=== PATIENT | female | born 1930 | race Caucasian/White ===

== ENCOUNTER 2017-05-18 18:20 | Inpatient (IN) | payer MEDICARE, OTHER ==
[~2017-05-18] VITALS: Ht 165.1 cm; Wt 71.2 kg
--- NOTE | 2017-05-18 18:28 | NUR ---
Cat-scratch - right hand; happened last night - now, her right hand is swollen/red and painful; placed on PO Keflex by PMD
[2017-05-18] MEDS ORDERED: THYR60TA2 PO (18:34)
[2017-05-18] MEDS ORDERED: ESCI10TA PO (18:34)
--- NOTE | 2017-05-18 18:49 | NUR ---
RAC # 18 IV ACCESS. BLOOD SAMPLE COLLECTED SENT TO LAB
[2017-05-18] MEDS ORDERED: TDAP [DIPH/PERTUSSIS/TET] 0.5 ML VIAL IM ONE ×2 (18:52→19:00)
[2017-05-18] MEDS ORDERED: ACETAMINOPHEN 325 MG TABLET ONE (18:52)
[2017-05-18 18:56] LABS: BASOPHILS # (AUTO) 0.1 /CMM (0.0-0.2); BASOPHILS % (AUTO) 0.8 % (0.0-2.0); EOSINOPHILS % (AUTO) 0.3 % (0.0-6.0); HEMATOCRIT 38 % (33-45); HEMOGLOBIN 12.7 g/dL (11.5-14.8); LYMPHOCYTES # (AUTO) 1.9 /CMM (0.8-4.8); LYMPHOCYTES % (AUTO) 18.9 % (20.0-44.0); MEAN CORPUSCULAR HEMOGLOBIN 30 PG (26.0-33.0); MEAN CORPUSCULAR HGB CONC 34 g/dl (31.0-36.0); MEAN CORPUSCULAR VOLUME 90 fL (82-100); MONOCYTES # (AUTO) 2.2 /CMM (0.1-1.30); MONOCYTES % (AUTO) 21.4 % (2.0-12.0); NEUTROPHILS % (AUTO) 58.6 % (43.0-81.0); PLATELET COUNT (AUTO) 295 /CMM (150-450); RDW COEFFICIENT OF VARIATION 14.3 (11.5-15.0); RED BLOOD CELL COUNT(AUTO) 4.19 MIL/uL (4.0-5.2); WHITE BLOOD COUNT (AUTO) 10.2 K/uL (4.3-11.0)
--- NOTE | 2017-05-18 18:57 | NUR ---
AUTHOR AT BEDSIDE
[2017-05-18] MEDS ORDERED: VANCOMYCIN 1 GM in IV D5W 250 ML IV ONE (19:00)
[2017-05-18] MEDS ORDERED: ACETAMINOPHEN 325 MG TABLET PO ONE (19:00)
[2017-05-18] MEDS ORDERED: PIPERACILLIN /TAZOBACTAM 3.375 G in IV D5W 50 ML IV ONE (19:00)
[2017-05-18 19:04] LABS: CALCIUM, SERUM 8.8 mg/dL (8.5-10.1); CARBON DIOXIDE 25 mmol/L (21-32); CHLORIDE 100 mmol/L (98-107); CREATININE 0.9 mg/dL (0.6-1.3); GLUCOSE 103 mg/dL (74-106); POTASSIUM 4.1 mmol/L (3.5-5.1); SODIUM SERUM 134 mmol/L (136-145); UREA NITROGEN, BLOOD 28 mg/dL (7-18)
[2017-05-18 19:09] LABS: PROTHROMBIN TIME 10.4 SECS (9.5-12.7)
--- NOTE | 2017-05-18 19:23 | NUR ---
CARLOS MANUEL SIERRA AT BEDSIDE TO DELMY MARVIN
--- NOTE | 2017-05-18 19:25 | NUR ---
GAVE REPORT TO [facility] CELLULITIS . CARLOS MANUEL PETERSON NP ADMITTING
[2017-05-18] MEDS ORDERED: IV NS 0.9% 1,000 ML IV PRN (19:27)
[2017-05-18] MEDS ORDERED: TEMAZEPAM 15 MG CAPSULE PO PRN (19:30)
[2017-05-18] MEDS ORDERED: ENOXAPARIN SODIUM 30 MG/0.3 ML DISP.SYRIN SQ SCH ×2 (19:30→19:45)
[2017-05-18] MEDS ORDERED: MORPHINE SULFATE INJ 2 MG/ML DISP.SYRIN IV PRN (19:30)
[2017-05-18] MEDS ORDERED: MAGNESIUM HYDROXIDE 30 ML UDC PO PRN ×2 (19:30→19:45)
[2017-05-18] MEDS ORDERED: MAG HYDROX/AL HYDROX/SIMETH 30 ML UDC PO PRN ×2 (19:30→19:45)
[2017-05-18] MEDS ORDERED: ONDANSETRON HCL/PF 4 MG/2 ML VIAL IVP PRN ×2 (19:30→19:45)
[2017-05-18] MEDS ORDERED: ACETAMINOPHEN 325 MG TABLET PO PRN (19:30)
[2017-05-18 20:00] VITALS: BP 133/84
--- NOTE | 2017-05-18 20:00 | NUR ---
RN NOTES RECEIVED PT FROM ER, DAUGHTER AT BEDSIDE, A/OX3 WITH CONFUSION, RIGHT HAND WAS SWOLLEN, VANCOMYCIN IV INFUSING, ADMISSION INSTRUCTION GIVEN, CALL LIGHT WITHIN REACH, SIDERAILS UPX2 CONTINUE TO MONITOR
[2017-05-18] MEDS ORDERED: FEE PK DOSING 1 MIN EA MC ONE (20:08)
[2017-05-18 21:00] VITALS: BP 133/84
[2017-05-18] MEDS: ESCITALOPRAM OXALATE (10 MG) 10 MG TABLET PO SCH (21:26)
[2017-05-18] MEDS: ENOXAPARIN SODIUM 40 MG/0.4 ML DISP.SYRIN SQ SCH (21:26)
[2017-05-18] MEDS: MORPHINE SULFATE INJ 2 MG/ML DISP.SYRIN IV PRN (21:26)
--- NOTE | 2017-05-18 21:30 | NUR ---
rn notes complained of right pain on her right hand- morphine 2 mg iv given as ordered, v/s stable
[2017-05-18] MEDS: IV NS 0.9% 1,000 ML IV PRN (21:57)
[2017-05-18] MEDS ORDERED: ESCITALOPRAM OXALATE (10 MG) 10 MG TABLET PO SCH (22:00)
[2017-05-18] MEDS ORDERED: TEMAZEPAM 7.5 MG CAPSULE ONE (23:54)
[2017-05-18] MEDS: PIPERACILLIN /TAZOBACTAM 2.25 G in IV D5W 50 ML IV SCH (23:59)
[2017-05-19] MEDS ORDERED: PIPERACILLIN /TAZOBACTAM 3.375 G in IV D5W 50 ML IV SCH ×4
[2017-05-19] MEDS: TEMAZEPAM 15 MG CAPSULE PO PRN ×2 (00:02→21:18)
--- NOTE | 2017-05-19 00:04 | NUR ---
RN NOTES PT ASKED SOMETHING TO MAKE HER SLEEP- RESTORIL 7.5MG PO GIVEN ORDERED, V/S STABLE
[2017-05-19] MEDS: PIPERACILLIN /TAZOBACTAM 2.25 G in IV D5W 50 ML IV SCH ×2 (05:53→12:15)
--- NOTE | 2017-05-19 06:39 | NUR ---
RN NOTES AWAKE, DENIES PAIN, NO SOB, MORNING CARE RENDERED, RIGHT HAND OFFLOAD TO 2 PILLOWS, CALL LIGHT WITHIN REACH, SIDERAILS UPX2 PT. NEEDS ATTENDED. ENDORSED TO DAYSHIFT NURSE FOR CONTINUITY OF CARE
--- NOTE | 2017-05-19 07:18 | NUR ---
MS RN OPENING NOTES RECEIVED PT AWAKE IN BED IN NO ACUTE SIGNS OF DISTRESS. A/O X3, NO COMPLAINTS OF PAIN OR DISCOMFORTS VOICED AT THIS TIME. RIGHT HAND SWOLLEN WITH REDNESS, ELEVATED WITH PILLOW. . ON ROOM AIR, BREATHING EVEN AND UNLABORED. IV ACCESS ON RIGHT AC G#18 PATENT AND INTACT WITH NS @ 75 ML/HR INFUSING WELL. BED IN LOWEST POSITION AND LOCKED WITH SIDE-RAILS UP X2. CALL LIGHT WITHIN REACH. WILL MAINTAIN ALL SAFETY MEASURES AND WILL CONTINUE TO MONITOR PT ACCORDINGLY.
[2017-05-19] MEDS ORDERED: PANTOPRAZOLE 40 MG TABLET.DR PO SCH (07:30)
[2017-05-19] MEDS ORDERED: THYROID 30 MG TABLET PO SCH (07:30)
[2017-05-19 07:55] LABS: CALCIUM, SERUM 8.5 mg/dL (8.5-10.1); CARBON DIOXIDE 27 mmol/L (21-32); CHLORIDE 102 mmol/L (98-107); CREATININE 0.9 mg/dL (0.6-1.3); GLUCOSE 138 mg/dL (74-106); POTASSIUM 3.8 mmol/L (3.5-5.1); SODIUM SERUM 138 mmol/L (136-145); UREA NITROGEN, BLOOD 22 mg/dL (7-18)
[2017-05-19 08:00] VITALS: BP 130/62
[2017-05-19] MEDS: MORPHINE SULFATE INJ 2 MG/ML DISP.SYRIN IV PRN ×3 (08:04→17:08)
[2017-05-19] MEDS: PANTOPRAZOLE 40 MG TABLET.DR PO SCH (08:05)
[2017-05-19] MEDS: THYROID 30 MG TABLET PO SCH (08:51)
[2017-05-19] MEDS ORDERED: VANCOMYCIN 1 GM in IV D5W 250 ML IV SCH (13:00)
[2017-05-19] MEDS: SULFAMETH/TRIMETH 800/160 MG 1 UDTAB TABLET PO SCH (13:58)
[2017-05-19] MEDS ORDERED: SULFAMETH/TRIMETH 800/160 MG 1 UDTAB TABLET PO SCH ×2 (14:00→21:00)
--- NOTE | 2017-05-19 14:10 | NUR ---
RN NOTES PATIENT'S ABX ZOSYN IVPB DC'D AND STARTED ON ABX BACTRIM 800/160MG TAB Q12HRS FOR CELLULITIS OF RIGHT HAND. WILL MONITOR EFFECTIVENESS OF THERAPY.
[2017-05-19] MEDS: ACETAMINOPHEN 325 MG TABLET PO PRN (15:28)
[2017-05-19 16:00] VITALS: BP 122/58
--- NOTE | 2017-05-19 16:12 | NUR ---
RN NOTES OBTAINED SWAB SPECIMEN ON RIGHT NARE OF PATIENT FOR MRSA ACTIVE SURVEILLANCE. LAB CALLED TO PICK-IT UP.
[2017-05-19 16:33] VITALS: BP 122/58
[2017-05-19] MEDS: IV NS 0.9% 1,000 ML IV PRN (18:37)
--- NOTE | 2017-05-19 18:45 | NUR ---
MS RN CLOSING NOTES PT AWAKE AND RESTING IN BED. A/O X3, RIGHT HAND REMAINS SWOLLEN WITH REDNESS, KEPT ELEVATED WITH PILLOW. ON ROOM AIR, BREATHING EVEN AND UNLABORED WITH NO SOB NOTED. IVF OF NS @ 75 ML/HR INFUSING WELL TO RAC, NO SIGNS OF INFILTRATION NOTED. BED IN LOWEST POSITION AND LOCKED WITH SIDE-RAILS UP X2. CALL LIGHT WITHIN REACH. ALL NEEDS AND CARE ATTENDED WELL. WILL ENDORSED TO SUPERVISOR TICKET SALES FOR DL. .
--- NOTE | 2017-05-19 19:30 | NUR ---
RN NOTES RECEIVED PT AWAKE ON BED, A/OX3 WITH CONFUSION, IV FLUID NS RUNNING @ 75ML/HR, RIGHT HAND SWOLLEN FROM CAT SCRATCH, DENIES PAIN AT THIS TIME, NO SOB,CALL LIGHT WITHIN REACH, SIDERAILS UPX2 CONTINUE TO MONITOR
[2017-05-19 20:00] VITALS: BP 123/60
[2017-05-19] MEDS: ESCITALOPRAM OXALATE (10 MG) 10 MG TABLET PO SCH (21:03)
[2017-05-19] MEDS: ENOXAPARIN SODIUM 40 MG/0.4 ML DISP.SYRIN SQ SCH (21:05)
[2017-05-19] MEDS ORDERED: TEMAZEPAM 7.5 MG CAPSULE ONE (21:11)
--- NOTE | 2017-05-19 21:18 | NUR ---
RN NOTES PT ASKED FOR SLEEPING PILL- RESTORIL 7.5MG PO GIVEN ORDERED, V/S STABLE
[2017-05-20] MEDS: SULFAMETH/TRIMETH 800/160 MG 1 UDTAB TABLET PO SCH ×3 (02:00→20:30)
--- NOTE | 2017-05-20 02:00 | NUR ---
RN NOTES PT. STATED THAT IF SHE'S SLEEPING NOT TO WAKE HER-UP BECAUSE SHE DID NOT SLEEP THE OTHER NIGHT" AND SHE WANTS TO CHANGE THE TIME OF HER ANTIBIOTIC
[2017-05-20] MEDS: MORPHINE SULFATE INJ 2 MG/ML DISP.SYRIN IV PRN ×4 (06:04→19:35)
--- NOTE | 2017-05-20 06:08 | NUR ---
RN NOTES COMPLAINED OF RIGHT HAND PAIN- MORPHINE 2 MG IV GIVEN ORDERED , V/S STABLE
[2017-05-20 06:50] LABS: CALCIUM, SERUM 8.6 mg/dL (8.5-10.1); CARBON DIOXIDE 28 mmol/L (21-32); CHLORIDE 105 mmol/L (98-107); CREATININE 0.9 mg/dL (0.6-1.3); GLUCOSE 121 mg/dL (74-106); MAGNESIUM 1.9 mg/dL (1.8-2.4); PHOSPHORUS 3.3 mg/dL (2.5-4.9); SODIUM SERUM 142 mmol/L (136-145); UREA NITROGEN, BLOOD 21 mg/dL (7-18)
[2017-05-20 06:53] LABS: BASOPHILS % (AUTO) 0.2 % (0.0-2.0); EOSINOPHILS % (AUTO) 0.2 % (0.0-6.0); HEMATOCRIT 39 % (33-45); HEMOGLOBIN 13.4 g/dL (11.5-14.8); LYMPHOCYTES % (AUTO) 20.4 % (20.0-44.0); MEAN CORPUSCULAR HEMOGLOBIN 31 PG (26.0-33.0); MEAN CORPUSCULAR HGB CONC 34 g/dl (31.0-36.0); MEAN CORPUSCULAR VOLUME 91 fL (82-100); MONOCYTES # (AUTO) 1.7 /CMM (0.1-1.30); MONOCYTES % (AUTO) 17.9 % (2.0-12.0); NEUTROPHILS % (AUTO) 61.3 % (43.0-81.0); PLATELET COUNT (AUTO) 279 /CMM (150-450); RED BLOOD CELL COUNT(AUTO) 4.28 MIL/uL (4.0-5.2); WHITE BLOOD COUNT (AUTO) 9.7 K/uL (4.3-11.0)
--- NOTE | 2017-05-20 07:09 | NUR ---
RN NOTES AWAKE, MORNING CARE RENDERED, PT. NEEDS ATTENDED
--- NOTE | 2017-05-20 07:18 | NUR ---
MS RN OPENING NOTES PT RECEIVED SITTING ON CHAIR BY BEDSIDE. A/O X3, NO COMPLAINTS OF PAIN OR DISCOMFORTS VOICED AT THIS TIME. RIGHT HAND REMAINS SWOLLEN AND RED, WILL CONTINUE TO ELEVATE WITH PILLOW. ON ROOM AIR, BREATHING EVEN AND UNLABORED. IV ACCESS ON RIGHT AC G#18 PATENT AND INTACT WITH NS @ 75 ML/HR INFUSING WELL. BED IN LOWEST POSITION AND LOCKED WITH SIDE-RAILS UP X2. CALL LIGHT WITHIN PT'S REACH. WILL MAINTAIN ALL SAFETY MEASURES AND WILL CONTINUE TO MONITOR PT ACCORDINGLY.
[2017-05-20 08:00] VITALS: BP 129/61
[2017-05-20] MEDS: THYROID 30 MG TABLET PO SCH (08:05)
[2017-05-20] MEDS: PANTOPRAZOLE 40 MG TABLET.DR PO SCH (08:05)
[2017-05-20 08:50] LABS: LYMPHOCYTES % (MANUAL) 22 % (16-48); MONOCYTES % (MANUAL) 16 % (0-11.0); NEUTROPHILS % (MANUAL) 62 (42-76)
[2017-05-20 16:00] VITALS: BP 126/58
--- NOTE | 2017-05-20 18:51 | NUR ---
MS RN CLOSING NOTES PT IN BED A/O X3, WITH PERIODS OF CONFUSION AND RESTLESSNESS NOTED DURING THE DAY. ALL NEEDS AND CARE ATTENDED WELL. RIGHT HAND REMAINS SWOLLEN WITH REDNESS, KEPT ELEVATED WITH PILLOW. VISITED BY THIS MORNING. ON ROOM AIR, BREATHING EVEN AND UNLABORED WITH NO SOB NOTED. IVF OF NS @ 75 ML/HR INFUSING WELL TO RAC, NO SIGNS OF INFILTRATION NOTED. BED IN LOWEST POSITION AND LOCKED WITH SIDE-RAILS UP X2. CALL LIGHT WITHIN REACH. WILL ENDORSED TO PARTS COUNTER ASSOCIATE FOR DL.
--- NOTE | 2017-05-20 19:30 | NUR ---
Ms/rn opening notea Patient in bed, resting comfortablyu in bed, alert, oriented x2. Able to verbalize needs. Reported pain in right hand 8/10 and check prn meds Morphine 2mg /ml. will reassess pain effectiveness. am rn discussed report and continuity of care. Will continue to monitor.
[2017-05-20 20:00] VITALS: BP 144/54
[2017-05-20] MEDS: ENOXAPARIN SODIUM 40 MG/0.4 ML DISP.SYRIN SQ SCH (20:32)
[2017-05-20 20:39] VITALS: BP 144/54
[2017-05-20] MEDS: ESCITALOPRAM OXALATE (10 MG) 10 MG TABLET PO SCH (21:36)
[2017-05-21] MEDS: ACETAMINOPHEN 325 MG TABLET PO PRN (01:20)
--- NOTE | 2017-05-21 01:29 | NUR ---
Ms/rn notes Patient reported some pain /mild pain , will give prn tylenol 650 mg po.
[2017-05-21] MEDS: IV NS 0.9% 1,000 ML IV PRN (01:44)
--- NOTE | 2017-05-21 06:12 | NUR ---
ms/rn closing notes Patient in bed, awake, alert and able to verbalize needs at all times.Require assistance to bathroom for safety. Bed alarm on and call lights within reach. Provide and offered fluids. Iv Ns at 75 cc/hr running on left wrist, no s/s of infiltration. Patient stated had a good sleep and well rested. Verbalized to f/u w/ md for dc planning order.will endorse to am rn regarding continuity of care.
[2017-05-21 06:32] LABS: CALCIUM, SERUM 8.3 mg/dL (8.5-10.1); CARBON DIOXIDE 24 mmol/L (21-32); CHLORIDE 106 mmol/L (98-107); CREATININE 0.9 mg/dL (0.6-1.3); GLUCOSE 93 mg/dL (74-106); POTASSIUM 4.1 mmol/L (3.5-5.1); SODIUM SERUM 140 mmol/L (136-145); UREA NITROGEN, BLOOD 15 mg/dL (7-18)
--- NOTE | 2017-05-21 07:40 | NUR ---
AM RN NOTE Received patient sleeping comfortably in her bed, no acute distress noted. Resp even and non-labored. IV site intact and patent, continue on IV fluids as ordered. Bed in low locked position. Will continue to monitor.
[2017-05-21 08:00] VITALS: BP 135/79
[2017-05-21] MEDS: PANTOPRAZOLE 40 MG TABLET.DR PO SCH (08:09)
[2017-05-21] MEDS: THYROID 30 MG TABLET PO SCH (08:09)
[2017-05-21] MEDS: SULFAMETH/TRIMETH 800/160 MG 1 UDTAB TABLET PO SCH (08:09)
[2017-05-21] MEDS ORDERED: IBUP-1481 PO (09:59)
[2017-05-21] MEDS ORDERED: SULF1TAB3 PO (09:59)
--- NOTE | 2017-05-21 10:32 | NUR ---
SUMA RN NOTE Patient seen and assessed by Amena MARTIN with discharge home order, noted and carried out. Called Daughter (Bernadette) made aware about discharge order. 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 Patient made aware. Skin pictures taken and placed in chart.
--- NOTE | 2017-05-21 13:45 | NUR ---
AM RN NOTE Patient awake and daughter (Bernadette) at bedside. Discharge instructions on medications and teachings given to patient and daughter, both verbalize understanding. HL and ID band removed. Belongings endorsed by HANDKERCHIEF MAKER. Discharge paperwork endorsed to daughter. Patient discharged/ left unit at this time as accompanied by daughter and 1 HANDKERCHIEF MAKER to downstairs.
== END 2017-05-21 13:40 | disposition home or self-care (01) | DRG 603 ==
LOC: ER 18:24 → MED 19:52
PROVIDERS: ADMIT Nurse Practitioner Acute Care; ATTEND Nurse Practitioner Acute Care
DX: L03.113 Cellulitis of right upper limb (principal); E87.1 Hypo-osmolality and hyponatremia; F03.90 Unspecified dementia, unspecified severity, without behavioral disturbance, psychotic disturbance, mood disturbance, and anxiety; F11.20 Opioid dependence, uncomplicated; S60.511A Abrasion of right hand, initial encounter; E03.9 Hypothyroidism, unspecified; F32.9 Major depressive disorder, single episode, unspecified; Z79.899 Other long term (current) drug therapy; Z87.891 Personal history of nicotine dependence; W55.03XA Scratched by cat, initial encounter; Y93.9 Activity, unspecified; Y92.009 Unspecified place in unspecified non-institutional (private) residence as the place of occurrence of the external cause; F13.21 Sedative, hypnotic or anxiolytic dependence, in remission; Z85.828 Personal history of other malignant neoplasm of skin
CPT/HCPCS: 36415; 73130-TC; 80048-TC; 83605-TC; 83735-TC; 84100-TC; 85025-TC; 85730-TC; 87040-TC; 87081-TC; 90715; A4606; J1650; J2270; J2543; J3370; J7030; J7060; Z7610

== ENCOUNTER 2017-07-05 16:55 | Inpatient (IN) | payer MEDICARE ==
[~2017-07-05] VITALS: Ht 162.6 cm; Wt 71.7 kg
[~2017-07-05 16:55] MED LIST: ESCI10TA PO; IBUP-1481 PO; SULF1TAB3 PO; THYR60TA2 PO
--- NOTE | 2017-07-05 17:05 | NUR ---
BIB RA c/o left knee pain and r ankle pain and swelling s/p trip and fall -ko. Received 8 mg morphine on route. patient still screaming and crying in pain. breathing even and unlabored. no sob. vitals stable. right ankle swollen, unable to move left knee. MD at bedside for eval.
--- NOTE | 2017-07-05 17:15 | NUR ---
patient medicated per md orders.
[2017-07-05 17:27] LABS: BASOPHILS % (AUTO) 0.6 % (0.0-2.0); EOSINOPHILS % (AUTO) 0.4 % (0.0-6.0); HEMATOCRIT 38 % (33-45); HEMOGLOBIN 12.8 g/dL (11.5-14.8); LYMPHOCYTES # (AUTO) 3.3 /CMM (0.8-4.8); MEAN CORPUSCULAR HEMOGLOBIN 31 PG (26.0-33.0); MEAN CORPUSCULAR HGB CONC 34 g/dl (31.0-36.0); MEAN CORPUSCULAR VOLUME 90 fL (82-100); MONOCYTES # (AUTO) 0.7 /CMM (0.1-1.30); MONOCYTES % (AUTO) 9.9 % (2.0-12.0); NEUTROPHILS # (AUTO) 3.1 /CMM (1.8-8.9); NEUTROPHILS % (AUTO) 43.1 % (43.0-81.0); PLATELET COUNT (AUTO) 322 /CMM (150-450); RDW COEFFICIENT OF VARIATION 14.8 (11.5-15.0); RED BLOOD CELL COUNT(AUTO) 4.18 MIL/uL (4.0-5.2); WHITE BLOOD COUNT (AUTO) 7.1 K/uL (4.3-11.0)
[2017-07-05 17:34] LABS: CALCIUM, SERUM 8.7 mg/dL (8.5-10.1); CARBON DIOXIDE 29 mmol/L (21-32); CHLORIDE 109 mmol/L (98-107); CREATININE 0.8 mg/dL (0.6-1.3); GLUCOSE 101 mg/dL (74-106); POTASSIUM 4.2 mmol/L (3.5-5.1); SODIUM SERUM 144 mmol/L (136-145); UREA NITROGEN, BLOOD 26 mg/dL (7-18)
[2017-07-05 17:38] LABS: INR 0.98 (0.87-1.13); PROTHROMBIN TIME 10.2 SECS (9.5-12.7)
--- NOTE | 2017-07-05 17:41 | NUR ---
FLASHER ADJUSTER AT BEDSIDE.
--- NOTE | 2017-07-05 18:27 | NUR ---
PAGED DR VYAS MULTI NEEDLE MACHINE OPERATOR ORTHO
--- NOTE | 2017-07-05 18:46 | NUR ---
REPORT GIVEN TO JENNI MITCHELL FOR ADMISSION.
--- NOTE | 2017-07-05 18:59 | NUR ---
DR SELLERS ON THE PHONE WITH GREENS TI[employer] HUE LONGORIA.
--- NOTE | 2017-07-05 19:17 | NUR ---
XRAY AT BS
--- NOTE | 2017-07-05 19:30 | NUR ---
16 FR amado catheter inserted per sterile protocal. Immediate output 200ML of urine, color YELLOW, clarity CLEAR.
--- NOTE | 2017-07-05 19:40 | NUR ---
MS2/RN RECEIVE PATIENT FROM [facility] AWAKE, ALERT, ORIENTED, ANXIOUS, C/O PAIN LEFT LEG, WILL GET PAIN MED ORDER AND WILL MEDICATE. PATIENT IS S/P FALL AT HOME WITH FRACTURE IN LEFT FEMUR. MADE PATIENT COMFORTABLE IN BED, CARLOS MANUEL COMMERCIAL ROOFING ESTIMATOR, IS AT BEDSIDE AND INSERTED F/C WHICH DRAINS MEL CLEAR URINE. PATIENT UNABLE TO GIVE MEANINGFUL HISTORY SHE IS NOT ANSWERING QUESTIONS APPROPRIATELY. UNABLE TO CHECK SKIN AT THE BACK SINCE PATIENT REFUSES. TAUGHT THE USE OF CALL LIGHT AND PLACED AT BEDSIDE WITHIN REACH. WILL MONITOR.
--- NOTE | 2017-07-05 19:45 | NUR ---
PATIENT TRANSPORTED TO [facility] VIA STRETCHER.
--- NOTE | 2017-07-05 20:00 | NUR ---
MS/RN PATIENT WAS SEEN BY THE ORTHO DR. VYAS. DR. VYAS ORDERED TO PUT ICE ON PATIENT'S LEFT LEG. CARRIED OUT.
--- NOTE | 2017-07-05 20:19 | NUR ---
MS2/RN HUE LOGNORIA, MARIO, AT BEDSIDE TALKING TO THE PATIENT.
--- NOTE | 2017-07-05 20:50 | NUR ---
MS2/RN ICE PACK APPLIED TO LEFT LEG ORDERED BY DR. VARNER.
--- NOTE | 2017-07-05 20:56 | NUR ---
MS2/RN ASSESSED PAIN LEVEL AT THIS TIME POST MORPHINE 2 MG IVP BUT PATIENT CAN NOT GIVE NUMERIC PAIN LEVEL. PER PATIENT PAIN IS A LITTLE BETTER THAN EARLIER. WILL CONTINUE TO MONITOR AND WILL MEDICATE APPROPRIATELY.
[2017-07-05 21:30] VITALS: BP 133/71
--- NOTE | 2017-07-05 21:40 | NUR ---
MS2/RN CALLED DAUGHTER AND MARCELINA GREWAL FOR ADMISSION INFORMATIONS. MARCELINA PROVIDED INFORMATIONS.
--- NOTE | 2017-07-05 23:52 | NUR ---
MS2/RN PATIENT IS SLEEPING, AROUSABLE, APPEAR COMFORTABLE, NO DISTRESS NOTED, CALL LIGHT IN REACH. WILL CONTINUE TO MONITOR.
--- NOTE | 2017-07-06 06:11 | NUR ---
MS2/RN MORNING CARE DONE, BED BATH RENDERED, TOTAL LINEN CHANGE DONE, REPOSITIONED TO COMFORT. ALL NEEDS ATTENDED AT THIS TIME. WILL CONTINUE TO MONITOR.
[2017-07-06 06:29] LABS: BASOPHILS % (AUTO) 0.3 % (0.0-2.0); EOSINOPHILS # (AUTO) 0.1 /CMM (0.0-0.7); EOSINOPHILS % (AUTO) 0.6 % (0.0-6.0); HEMATOCRIT 31 % (33-45); HEMOGLOBIN 10.3 g/dL (11.5-14.8); LYMPHOCYTES # (AUTO) 0.9 /CMM (0.8-4.8); LYMPHOCYTES % (AUTO) 7.8 % (20.0-44.0); MEAN CORPUSCULAR HEMOGLOBIN 31 PG (26.0-33.0); MEAN CORPUSCULAR HGB CONC 34 g/dl (31.0-36.0); MEAN CORPUSCULAR VOLUME 91 fL (82-100); MONOCYTES # (AUTO) 1.4 /CMM (0.1-1.30); MONOCYTES % (AUTO) 12.4 % (2.0-12.0); NEUTROPHILS # (AUTO) 9.1 /CMM (1.8-8.9); NEUTROPHILS % (AUTO) 78.9 % (43.0-81.0); PLATELET COUNT (AUTO) 312 /CMM (150-450); RDW COEFFICIENT OF VARIATION 16.1 (11.5-15.0); RED BLOOD CELL COUNT(AUTO) 3.35 MIL/uL (4.0-5.2); WHITE BLOOD COUNT (AUTO) 11.5 K/uL (4.3-11.0)
[2017-07-06 07:05] LABS: CHOLESTEROL 145 mg/dL (<200); HDL CHOLESTEROL 65 mg/dL (40-60); LDL 67 mg/dL (0-99); THYROID STIMULATING HORMONE 2.289 uIU/mL (0.358-3.74); TRIGLYCERIDES 53 mg/dL (30-150)
[2017-07-06 07:10] LABS: ALANINE AMINOTRANSFERASE 30 U/L (12-78); ALBUMIN 3.3 g/dL (3.4-5.0); ALKALINE PHOSPHATASE 71 U/L (46-116); ASPARTATE AMINOTRANSFERASE 33 U/L (15-37); BILIRUBIN,TOTAL 0.4 mg/dL (0.2-1.0); CALCIUM, SERUM 8.2 mg/dL (8.5-10.1); CARBON DIOXIDE 27 mmol/L (21-32); CHLORIDE 105 mmol/L (98-107); CREATININE 0.9 mg/dL (0.6-1.3); GLUCOSE 164 mg/dL (74-106); MAGNESIUM 1.8 mg/dL (1.8-2.4); POTASSIUM 4.5 mmol/L (3.5-5.1); SODIUM SERUM 140 mmol/L (136-145); TOTAL PROTEIN, SERUM 6.5 g/dL (6.4-8.2); UREA NITROGEN, BLOOD 26 mg/dL (7-18)
[2017-07-06 08:00] VITALS: BP 156/67
--- NOTE | 2017-07-06 08:00 | NUR ---
MS RN AM Notes Received patient in bed, alert,awake with head of bed elevated, no sob or distress noted. On 02 @ 2lpm via NC and tolerated well 02 saturation of 98%. IV intact and patent HL only. Alert and oriented x 3, verbally responsive and able to make needs known. On NPO for pending sx.Awaiting for Dr Fisher's surgical order.CT of left knee without contrast still pending.Kept patient clean and comfortable in bed, call light with in patient reach, will continue to monitor accordingly.
[2017-07-06 08:13] VITALS: BP 156/67
--- NOTE | 2017-07-06 12:32 | NUR ---
PT WAS PICKED UP BY O.R. STAFF FOR SURGICAL FIXATION OF LEFT DISTAL FEMUR FX.CONSENTS HAVE BEEN SIGNED VIA T.O. WITH PT'S DAUGHTER,MARCELINA CASAREZ WITNESSED AND EXPLANATIONS OF THE SX PROCEDURE BY DR VYAS VIA PHONE TO MARCELINA.STABLE V/S AND DENIES ANY PAIN OR DISTRESS.WILL MONITOR.
--- NOTE | 2017-07-06 16:55 | NUR ---
PT ARRIVED FROM [facility] S/P ORIF OF LT DISTAL FEMUR BY DR FARIA AND PT IS SO AGITATED TRYING TO PULL OUT HER HITCHCOCK,HOSPITAL GOWN,BED SHEET AND IV LINE INSPITE OF REORIENTING HER OF THE SX SHE JUST HAD,HER SURROUNDINGS SEVERAL TIMES.STARTED TO HIT STAFF WHILE PUTTING HER HOSPITAL GOWN ON.PT WANTS TO BE NUDE ALL THE TIME.NOTIFIED DR ENRIQUE FITZGERALD WITH ORDERS MADE AND CARRIED OUT.CALLED PT'S DAUGHTER,MARCELINA AND MADE AWARE.MARCELINA STATED PT HAS A BAD REACTION WITH ATIVAN-NOTIFIED DR FITZGERALD AND AWAITING TO RETURN CALL.
[2017-07-06 17:00] VITALS: BP 141/69
--- NOTE | 2017-07-06 18:00 | NUR ---
PT RESTING IN BED SLEEPING BUT AROUSABLE.XANAX GIVEN HAS EFFECTIVE RESULT.NO S/S OF PAIN OR DISTRESS.CALL LIGHT PLACED WITHIN REACH.
--- NOTE | 2017-07-06 19:30 | NUR ---
MS2/RN RECEIVE PATIENT SLEEPING, APPEAR COMFORTABLE, BREATHING EVEN AND UNLABORED, IVF INFUSING WELL, CALL LIGHT IN REACH. WILL MONITOR.
[2017-07-06 19:40] VITALS: BP_SYST 116; BP_SYST 150; BP_DIAS 79; BP_DIAS 91
[2017-07-07] VITALS (10 sets, daily range): BP systolic 99–114; BP diastolic 41–60
--- NOTE | 2017-07-07 05:30 | NUR ---
MS2/RN PATIENT IS AWAKE, COMFORTABLE, NO C/O PAIN, PATIENT STATES THAT SHE HAS A GOOD SLEEP. MORNING CARE DONE, TOTAL LINEN CHANGE RENDERED. F/C CARE DONE. REPOSITIONED TO COMFORT. WILL CONTINUE TO MONITOR.
--- NOTE | 2017-07-07 08:00 | NUR ---
MS RN AM Notes Received patient in bed, alert,awake with head of bed elevated, no sob or distress noted. On 02 @ 2lpm via NC and tolerated well 02 saturation of 98%. IV intact and patent and with IVF 1/2 NS at 70 ml/hr infusing well.With 1:1 sitter at bedside. Alert and oriented x 3, verbally responsive and able to make needs known.Pt is calm and cooperative saying that she slept like a baby and she never slept so good.Kept patient clean and comfortable in bed, call light with in patient reach, will continue to monitor accordingly.
[2017-07-07 11:00] LABS: CALCIUM, SERUM 7.2 mg/dL (8.5-10.1); CARBON DIOXIDE 26 mmol/L (21-32); CHLORIDE 108 mmol/L (98-107); CREATININE 1.1 mg/dL (0.6-1.3); GLUCOSE 117 mg/dL (74-106); POTASSIUM 4.7 mmol/L (3.5-5.1); SODIUM SERUM 140 mmol/L (136-145); UREA NITROGEN, BLOOD 30 mg/dL (7-18)
[2017-07-07 11:46] LABS: BASOPHILS % (AUTO) 0.3 % (0.0-2.0); EOSINOPHILS % (AUTO) 0.2 % (0.0-6.0); LYMPHOCYTES # (AUTO) 1.5 /CMM (0.8-4.8); LYMPHOCYTES % (AUTO) 15.8 % (20.0-44.0); MEAN CORPUSCULAR HEMOGLOBIN 31 PG (26.0-33.0); MEAN CORPUSCULAR HGB CONC 34 g/dl (31.0-36.0); MEAN CORPUSCULAR VOLUME 91 fL (82-100); MONOCYTES # (AUTO) 2.3 /CMM (0.1-1.30); MONOCYTES % (AUTO) 24.9 % (2.0-12.0); NEUTROPHILS # (AUTO) 5.4 /CMM (1.8-8.9); NEUTROPHILS % (AUTO) 58.8 % (43.0-81.0); PLATELET COUNT (AUTO) 250 /CMM (150-450); RDW COEFFICIENT OF VARIATION 16.3 (11.5-15.0); RED BLOOD CELL COUNT(AUTO) 2.08 MIL/uL (4.0-5.2); WHITE BLOOD COUNT (AUTO) 9.2 K/uL (4.3-11.0)
[2017-07-07 11:49] LABS: HEMATOCRIT 19 % (33-45); HEMOGLOBIN 6.4 g/dL (11.5-14.8)
[2017-07-07 12:01] LABS: LYMPHOCYTES % (MANUAL) 13 % (16-48); MONOCYTES % (MANUAL) 24 % (0-11.0); NEUTROPHILS % (MANUAL) 63 (42-76)
--- NOTE | 2017-07-07 12:42 | NUR ---
PT JUST HAD TYLENOL 650 MG PO TWO HRS AGO
--- NOTE | 2017-07-07 16:10 | NUR ---
TRANSFUSED FIRST UNIT PRBC WITH STABLE V/S.PT DENYING ANY PAIN OR DISTRESS.WILL CONTINUE TO MONITOR FOR ANY A/R.
--- NOTE | 2017-07-07 16:20 | NUR ---
DR VYAS CALLED AND ORDERED 2 UNITS PRBC FOR LOW HGB OF 6.4 HCT [address]MENTIONED [address] DR VYAS THAT 2 UNITS OF PRBC HAS ALREADY BEEN ORDERED BY CARLOS MANUEL PETERSON NP EARLIER.DR VYAS STATED THAT WE JUST NEED TO TRANSFUSE 2 UNITS PRBC TOTAL AND TO CHECK CBC TOMORROW AM WHICH HAS BEEN CARRIED OUT.
--- NOTE | 2017-07-07 19:15 | NUR ---
RN OPEN NOTES RECEIVED PATIENT AWAKE IN BED WITH SITTER AT BEDSIDE. A/O X2-3 WITH PERIODS OF CONFUSION. NO SIGNS OF DISTRESS OR DISCOMFORT. BREATHING EVEN AND UNLABORED. ON 2LPM O2 VIA NC. IV ACCESS IN RFA PATENT AND INTACT, NO SIGNS OF REDNESS OR INFILTRATION. PATIENT JUST FINISHED RECEIVING 1 OF 2 UNITS BLOOD TRANSFUSION , AND TOLERATED WELL. DRESSING ON L LEG C/D/I, WITH LLE IMMOBILIZER IN PLACE. F/C INTACT WITH CLEAR YELLOW FLUID NOTED. BED IN LOW LOCKED POSITION WITH SIDE RAILS X3. CALL LIGHT WITHIN REACH. WILL CONTINUE TO MONITOR.
--- NOTE | 2017-07-07 19:17 | NUR ---
COMPLETED TRANSFUSING FIRST UNIT WITH STABLE V/S WITH NO A/R.PT DENIES ANY PAIN OR DISTRESS.CALLED BLOOD BANK AND THEY STATED THAT THE SECOND UNIT PRBC IS AVAILABLE.WILL ENDORSE TO NIGHT NURSE CARE.ANCEF IV ATB FOR 1700 NOT GIVEN DUE TO ONGOING BLOOD TRANSFUSION.PHARMACY,[facility] AWARE.
--- NOTE | 2017-07-07 23:53 | NUR ---
RN NOTES ADMINISTERED XANAX .5MG ORDERED FOR ANXIETY. PATIENT VERT RESTLESS AND ANXIOUS, PULLING AT F/C AND NC. VSS. BP 124/48 P98. WILL CONTINUE TO MONITOR.
--- NOTE | 2017-07-08 00:05 | NUR ---
RN NOTES ANCEF 1GM WAS GIVEN.WAS UNABLE TO ADMINISTER 1700 DOSE PATIENT WAS RECEIVING BLOOD TRANSFUSION . WILL CONTINUE TO MONITOR.
[2017-07-08 00:31] LABS: BASOPHILS % (AUTO) 0.4 % (0.0-2.0); EOSINOPHILS % (AUTO) 0.3 % (0.0-6.0); HEMATOCRIT 23 % (33-45); HEMOGLOBIN 7.9 g/dL (11.5-14.8); LYMPHOCYTES # (AUTO) 1.4 /CMM (0.8-4.8); LYMPHOCYTES % (AUTO) 19.7 % (20.0-44.0); MEAN CORPUSCULAR HEMOGLOBIN 30 PG (26.0-33.0); MEAN CORPUSCULAR HGB CONC 34 g/dl (31.0-36.0); MEAN CORPUSCULAR VOLUME 89 fL (82-100); MONOCYTES # (AUTO) 2.4 /CMM (0.1-1.30); MONOCYTES % (AUTO) 32.7 % (2.0-12.0); NEUTROPHILS # (AUTO) 3.4 /CMM (1.8-8.9); NEUTROPHILS % (AUTO) 46.9 % (43.0-81.0); PLATELET COUNT (AUTO) 202 /CMM (150-450); RDW COEFFICIENT OF VARIATION 16.4 (11.5-15.0); RED BLOOD CELL COUNT(AUTO) 2.62 MIL/uL (4.0-5.2); WHITE BLOOD COUNT (AUTO) 7.2 K/uL (4.3-11.0)
--- NOTE | 2017-07-08 01:14 | NUR ---
RN NOTES PATIENT WAS ATTEMPTING TO REMOVE DRESSING ON L LEG, STATING SHE DIDNT KNOW WHAT IT WAS. SHE WAS FOUND WITH A SMALL AMOUNT OF BLEEDING FROM THE LOWER LEFT THIGH SURGICAL SITE. BLEEDING STOPPED AFTER APPLYING PRESSURE TO SITE. REINFORCED SURGICAL DRESSING. WILL CONTINUE TO MONITOR.
[2017-07-08 01:25] LABS: LYMPHOCYTES % (MANUAL) 24 % (16-48); MONOCYTES % (MANUAL) 22 % (0-11.0); NEUTROPHILS % (MANUAL) 54 (42-76)
[2017-07-08 06:26] LABS: BASOPHILS % (AUTO) 0.4 % (0.0-2.0); EOSINOPHILS % (AUTO) 0.3 % (0.0-6.0); HEMATOCRIT 24 % (33-45); HEMOGLOBIN 8.4 g/dL (11.5-14.8); LYMPHOCYTES # (AUTO) 1.3 /CMM (0.8-4.8); LYMPHOCYTES % (AUTO) 18.1 % (20.0-44.0); MEAN CORPUSCULAR HEMOGLOBIN 31 PG (26.0-33.0); MEAN CORPUSCULAR HGB CONC 35 g/dl (31.0-36.0); MEAN CORPUSCULAR VOLUME 89 fL (82-100); MONOCYTES # (AUTO) 2.5 /CMM (0.1-1.30); MONOCYTES % (AUTO) 36.1 % (2.0-12.0); NEUTROPHILS # (AUTO) 3.2 /CMM (1.8-8.9); NEUTROPHILS % (AUTO) 45.1 % (43.0-81.0); PLATELET COUNT (AUTO) 222 /CMM (150-450); RDW COEFFICIENT OF VARIATION 16.8 (11.5-15.0); RED BLOOD CELL COUNT(AUTO) 2.73 MIL/uL (4.0-5.2)
[2017-07-08 06:46] LABS: CALCIUM, SERUM 7.5 mg/dL (8.5-10.1); CARBON DIOXIDE 24 mmol/L (21-32); CHLORIDE 110 mmol/L (98-107); CREATININE 0.8 mg/dL (0.6-1.3); GLUCOSE 118 mg/dL (74-106); POTASSIUM 3.8 mmol/L (3.5-5.1); SODIUM SERUM 141 mmol/L (136-145); UREA NITROGEN, BLOOD 21 mg/dL (7-18)
--- NOTE | 2017-07-08 06:55 | NUR ---
RN CLOSING NOTES PATIENT RESTING IN BED WITH SITTER AT BEDSIDE. A/O X2-3 WITH PERIODS OF CONFUSION. NO SIGNS OF DISTRESS OR DISCOMFORT. BREATHING EVEN AND UNLABORED. ON 2LPM O2 VIA NC. IV ACCESS IN RFA WITH 1/2 NS INFUSING, PATENT AND INTACT, NO SIGNS OF REDNESS OR INFILTRATION. DRESSING ON L LEG C/D/I, WITH LLE IMMOBILIZER IN PLACE. F/C INTACT WITH CLEAR YELLOW FLUID NOTED. ALL NEEDS MET. NO SIGNIFICANT CHANGES THROUGH THE NIGHT. BED IN LOW LOCKED POSITION WITH SIDE RAILS X3. CALL LIGHT WITHIN REACH. WILL ENDORSE TO AM SHIFT FOR DL.
[2017-07-08 08:00] VITALS: BP 101/47
--- NOTE | 2017-07-08 08:00 | NUR ---
MS RN AM NOTES PATIENT RESTING IN BED WITH SITTER AT BEDSIDE. A/O X2-3 WITH PERIODS OF CONFUSION. NO SIGNS OF DISTRESS OR DISCOMFORT. BREATHING EVEN AND UNLABORED. ON 2LPM O2 VIA NC. IV ACCESS IN RFA WITH 1/2 NS INFUSING, PATENT AND INTACT, NO SIGNS OF REDNESS OR INFILTRATION. DRESSING ON L LEG C/D/I, WITH LLE IMMOBILIZER IN PLACE. F/C INTACT DRAINING CLEAR YELLOW URINE NOTED. ALL NEEDS MET. NO SIGNIFICANT CHANGES.BED IN LOW LOCKED POSITION WITH SIDE RAILS X3. CALL LIGHT WITHIN REACH.
[2017-07-08 09:40] LABS: NEUTROPHILS % (MANUAL) 49 (42-76)
[2017-07-08 09:41] LABS: LYMPHOCYTES % (MANUAL) 22 % (16-48); MONOCYTES % (MANUAL) 29 % (0-11.0)
[2017-07-08 09:49] LABS: BAND % (MANUAL) 0 % (0.0-5.0)
[2017-07-08 15:49] VITALS: BP 128/56
--- NOTE | 2017-07-08 17:00 | NUR ---
PT AMBULATED WITH P.T. AND MADE A FEW STEPS.
--- NOTE | 2017-07-08 19:45 | NUR ---
RN OPENING NOTES RECEIVED REPORT FROM DAYSHIFT RN ESTELLE. FOUND Pt AWAKE RESTING IN BED. NO S/S OF ACUTE DISTRESS OR SOB NOTED. Pt IS A/OX2-3, WITH SOME CONFUSION, VERBAL, ABLE TO MAKE NEEDS KNOWN. WITH SITTER AT BEDSIDE. HITCHCOCK CATHETER IN PLACE. IV ACCESS ON RFA #20G, IVF 1/2NS @70ML/HR INFUSING WELL. SAFETY MEASURES IN PLACE. BED LOW, LOCKED, HOB ELEVATED, SIDE RAILS UP, CALL LIGHT AND BEDSIDE TABLE WITHIN REACH. WILL CONTINUE TO MONITOR Pt THROUGHOUT THE NIGHT FOR SAFETY.
[2017-07-08 20:25] VITALS: BP 113/46
[2017-07-08 21:00] VITALS: BP 113/46
--- NOTE | 2017-07-08 22:07 | NUR ---
faxed clinicals and PT eval notes to [facility] [phone]. Patient will need placement for rehab, for dc planning needs afterhours and weekends need to contact spiritual care coordinator at [phone] Addendum: 07/08/17 at 2207 by CARLOS PAREDES RN Amended: Links added.
--- NOTE | 2017-07-09 06:50 | NUR ---
RN CLOSING NOTES NO SIGNIFICANT CHANGES NOTED DURING THE NIGHT. NO S/S OF ACUTE DISTRESS OR SOB NOTED DURING SHIFT. ALL NEEDS MET AND ATTENDED TO. SAFETY MEASURES IN PLACE. WILL ENDORSE TO DAYSHIFT RN FOR Pt's DL.
--- NOTE | 2017-07-09 07:20 | NUR ---
MS RN OPENING NOTES RECEIVED PT FROM NIGHTSHIFT NURSE IN STABLE CONDITION. PT IS A/O X2-3 WITH PERIODS OF CONFUSION. NO SOB OR SIGNS OF DISTRESS NOTED. BREATHING IS EVEN AND UNLABORED. PT DENIES ANY PAIN AT THIS TIME. PT IS ON 2L O2 VIA NC AND SATING WELL @ 98%. HITCHCOCK CATHETER NOTED TO BE DRAINING CLEAR YELLOW URINE. LEFT LOWER EXTREMITY NOTED TO BE WRAPPED IN SURGICAL DRESSING. HINGED LEG BRACE ON ORDERED BY MD. BED IN LOW LOCKED POSITION, SIDE RAILS UP X2, CALL LIGHT WITHIN REACH. WILL CONTINUE TO MONITOR
[2017-07-09 08:10] VITALS: BP 129/52
--- NOTE | 2017-07-09 11:35 | NUR ---
MS RN NOTES PT HAS A DISCHARGE ORDER. BERTO THE SCHOOL GUARD AIRCRAFT PARTS ASSEMBLER WAS CALLED IN REGARDS TO HER TRANSPORTATION AND PLACEMENT VERIFICATION. AWAITING FOR REPLY
[2017-07-09 11:43] LABS: BASOPHILS % (AUTO) 0.4 % (0.0-2.0); EOSINOPHILS % (AUTO) 0.5 % (0.0-6.0); HEMATOCRIT 24 % (33-45); HEMOGLOBIN 8.1 g/dL (11.5-14.8); LYMPHOCYTES # (AUTO) 1.6 /CMM (0.8-4.8); LYMPHOCYTES % (AUTO) 21.2 % (20.0-44.0); MEAN CORPUSCULAR HEMOGLOBIN 30 PG (26.0-33.0); MEAN CORPUSCULAR HGB CONC 34 g/dl (31.0-36.0); MEAN CORPUSCULAR VOLUME 89 fL (82-100); MONOCYTES # (AUTO) 2.2 /CMM (0.1-1.30); MONOCYTES % (AUTO) 29.5 % (2.0-12.0); NEUTROPHILS # (AUTO) 3.6 /CMM (1.8-8.9); NEUTROPHILS % (AUTO) 48.4 % (43.0-81.0); PLATELET COUNT (AUTO) 282 /CMM (150-450); RDW COEFFICIENT OF VARIATION 16.2 (11.5-15.0); WHITE BLOOD COUNT (AUTO) 7.3 K/uL (4.3-11.0)
[2017-07-09 12:09] LABS: EOSINOPHILS % (MANUAL) 2 % (0-4); LYMPHOCYTES % (MANUAL) 23 % (16-48); MONOCYTES % (MANUAL) 25 % (0-11.0); NEUTROPHILS % (MANUAL) 47 (42-76); REACTIVE LYMPHOCYTES 3 % (0-0)
--- NOTE | 2017-07-09 12:16 | NUR ---
MS RN NOTES BERTO THE GENERAL NEUROLOGIST IS MANAGER LAUNDRY WITH THE PT'S INSURANCE AND [facility]
[2017-07-09 16:10] VITALS: BP 126/65
--- NOTE | 2017-07-09 17:21 | NUR ---
MS RN NOTES PT'S DISCHARGE IS ON HOLD FOR TODAY. PER BERTO, [facility] WILL NOT ACCEPT THE PATIENT AT THIS TIME BUT MAY TOMORROW MORNING AFTER THE PT IS REEVALUATED BY PT. MARCELINA THE PT'S DAUGHTER WAS NOTIFIED OF CHANGES ALONG WITH CARLOS MANUEL THE SMOKING PIPE COATER AND MENDEZ.
--- NOTE | 2017-07-09 18:39 | NUR ---
MS RN CLOSING NOTES PT REMAINS IN STABLE CONDITION. ALL DUE MEDS GIVEN. ALL ORDERS CARRIED OUT ACCORDINGLY. ALL SAFETY MEASURES IN PLACE. WILL ENDORSE TO NIGHTSHIFT NURSE FOR DL
--- NOTE | 2017-07-09 19:55 | NUR ---
rn initial notes: received report from rn afsatu, pt in bed, awake, a/o x3 with periods of confusion, sitter at bed side, pt on ra respiration even and unlabored, s/p orif 07/06/[address] ramachandran and s/p dressing changed today by dr ramachandran, dressing c/d/i, no active bleeding noted, free from drainage/infection/redness. pt denies any numbness tingling sensation on the leg, able to move and wiggle toes, pedal pulses intact and palpable, pt has left knee hinged brace in placed. ble offloaded, scd in placed, right wrist iv access patent and flushing well infusing with 1/2 ns at 70ml/hr. safety precautions for fall initiated call light in reach, will continue to monitor
[2017-07-09 20:00] VITALS: BP_SYST 130; BP_SYST 134; BP_DIAS 52; BP_DIAS 73
--- NOTE | 2017-07-09 20:00 | NUR ---
rn notes: per day rn report, pt for dc to [facility] today, but held, because pt needs to be reevaluated by pt, and once cleared will be dc to [facility], possibly tomorrow. pt's dtr mohinder tomas. also discussed with the pt, and pt requested to have it written on a paper so she will remember what she needs to do in am. wrote it in a paper and handed it to the pt.
--- NOTE | 2017-07-09 21:45 | NUR ---
refusal for tylenol: pt refused for tylenol stated it doesnt help with her pain, offered ultram she stated it doesnt help also, she added, she will not take any pain medicine instead because she knows doctor only let her take tylenol and ultram.
--- NOTE | 2017-07-10 00:58 | NUR ---
rn notes: offered xanax but pt refused stated she doesnt need it, mainor webster as witness
--- NOTE | 2017-07-10 01:09 | NUR ---
refusal for tylenol: pt refused to take tylenol, she stated she doesnt want it, mainor webster as witness, education provided to the pt,
--- NOTE | 2017-07-10 05:22 | NUR ---
am care: bed bath provided by mainor webster
--- NOTE | 2017-07-10 05:33 | NUR ---
refusal for tylenol: offered tylenol for pt, tylenol scheduled q4hrs, pt refused stated she doesnt want tylenol or any other medication, education regarding med compliance provided, mainor webster as witness.
--- NOTE | 2017-07-10 06:53 | NUR ---
rn closing notes: pt in bed, remains confused at times, uncooperative, kept refusing for tylenol and ultram, also trying to pull out iv access, sitter at bedside, left thigh dressing remains in placed, dressing c/d/i, left knee hinged braced remains in placed, pt voided using bed felton, iv access remains patent and flushing well, infusing with 1/2 ns at 70ml/hr, ble kept offloaded on pillows, vs remains stabvle, needs attended, awaiting for pt indra walton paper works exitcare ready, safety precautions for fall remains engaged, call light in reach, will endorse to day rn for reji.
--- NOTE | 2017-07-10 07:19 | NUR ---
MS RN OPENING NOTES RECEIVED PT FROM NIGHTSHIFT NURSE IN STABLE CONDITION. PT IS A/O X2-3 WITH PERIODS OF CONFUSION. NO SOB OR SIGNS OF DISTRESS NOTED. BREATHING IS EVEN AND UNLABORED. PT DENIES ANY PAIN AT THIS TIME. LEFT LOWER EXTREMITY NOTED TO BE WRAPPED IN CLAUDIA BANDAGE WITH MEPILEX COVERING INCISION SITE ORDERED BY MD. HINGED LEG BRACE ON . BED IN LOW LOCKED POSITION, SIDE RAILS UP X2, BED ALARM ON, CALL LIGHT WITHIN REACH. WILL CONTINUE TO MONITOR
[2017-07-10 08:00] VITALS: BP 142/69
--- NOTE | 2017-07-10 12:42 | NUR ---
MS RHONDA NOTES PT HAS BEEN APPROVED TO GO TO [facility]. BERTO THE FUSE CUP EXPANDER WAS NOTIFIED AND STATES THAT SHE WILL ARRANGE TRANSPORTATION FOR THE PT. AWAITING TO HEAR BACK FOR CONFIRMATION TIME. WILL CALL AND GIVE REPORT TO REHAB FACILITY
--- NOTE | 2017-07-10 14:12 | NUR ---
MS RN NOTES REPORT CALLED AND GIVEN TO KEN THE RN WHO WILL BE THE RECEIVING NURSE AT [facility]. PER KEN, THE PT IS ASSIGNED TO ROOM 118 BED Ni THOMSON THE BURNISHER AND BUMPER WAS PRESENT DURING REPORT AND MADE AWARE OF BED ASSIGNMENT. STILL AWAITING TRANSPORTATION TIME
--- NOTE | 2017-07-10 15:51 | NUR ---
MS RN NOTES BERTO CALLED. PT IS SCHEDULED TO BE PICKED UP BY [facility] @1600. PT'S DAUGHTER MARCELINA WAS NOTIFIED
[2017-07-10 16:00] VITALS: BP 141/74
--- NOTE | 2017-07-10 17:20 | NUR ---
MS MIS SPECIALIST NOTES PT WAS DISCHARGED FROM UNIT IN STABLE CONDITION. ALL NEEDS WERE MET DURING SHIFT AND ORDERS CARRIED OUT ACCORDINGLY. ALL DISCHARGE INSTRUCTIONS DISCUSSED WITH PT IN DETAIL AND REPORTED TO THE RECEIVING NURSE. PT WAS ABLE TO SIGN ALL REQUIRED DISCHARGE PAPERWORK. PT LEFT FACILITY VIA AMBULANCE TRANSPORT WITH ALL BELONGINGS AND DISCHARGE PAPERWORK.
== END 2017-07-10 17:20 | DRG 480 ==
LOC: ER 16:57 → TELE2 18:45 → MEDSG2 19:56
PROVIDERS: ADMIT Nurse Practitioner Acute Care; ATTEND Nurse Practitioner Acute Care
PROC: 0QSC04Z Reposition Left Lower Femur with Internal Fixation Device, Open Approach (ICD-10-PCS; principal; 2017-07-06 13:53)
PROC: 30233N1 Transfusion of Nonautologous Red Blood Cells into Peripheral Vein, Percutaneous Approach (ICD-10-PCS; 2017-07-07)
DX: S72.402A Unspecified fracture of lower end of left femur, initial encounter for closed fracture (principal); N17.0 Acute kidney failure with tubular necrosis; G30.9 Alzheimer's disease, unspecified; F02.80 Dementia in other diseases classified elsewhere, unspecified severity, without behavioral disturbance, psychotic disturbance, mood disturbance, and anxiety; S93.401A Sprain of unspecified ligament of right ankle, initial encounter; F32.9 Major depressive disorder, single episode, unspecified; D64.9 Anemia, unspecified; W10.9XXA Fall (on) (from) unspecified stairs and steps, initial encounter; E03.9 Hypothyroidism, unspecified; Z79.01 Long term (current) use of anticoagulants; Z87.891 Personal history of nicotine dependence; Z79.899 Other long term (current) drug therapy; Y93.9 Activity, unspecified; Y92.009 Unspecified place in unspecified non-institutional (private) residence as the place of occurrence of the external cause; F10.21 Alcohol dependence, in remission
CPT/HCPCS: 36415; 71010-TC; 73552; 73560-TC; 73564-TC; 73610-TC; 73700-TC; 80048-TC; 80053-TC; 80061-TC; 83735-TC; 84100-TC; 84443-TC; 85025-TC; 85730-TC; 86850-TC; 86921-TC; 87081-TC; 97110-TC; 97116-TC; 97530-TC; A4216; A4606; A6209; A6253; A6402; G0480; J0690; J1100; J1170; J1885; J2250; J2270; J2405; J2704; J3010; J3490; J7030; J7050; J7060; P9016-BL; Q2036; Z7610